=== PATIENT | male | born 1985 | race African-American/Black ===

== ENCOUNTER 2016-12-21 13:20 | Emergency (ER) | payer OTHER ==
[~2016-12-21] VITALS: Ht 177.8 cm; Wt 85.0 kg
[~2016-12-21 13:20] MED LIST: ALFU1TAB10 PO; CIPR500T2 PO; IBUP-232 PO; LORT5TAB PO; Z.0.NO CURRENT MEDS
[2016-12-21 13:36] VITALS: BP 132/74; PULSE 84; RESP 15; TEMP 98.1; O2SAT 98
--- NOTE | 2016-12-21 15:45 | RADRPT ---
EXAM DATE/TIME: 12/21/2016 15:42 [place] COMPARISON: No previous studies available for comparison. INDICATIONS : Patient fell "pop" in right knee yesterday. Complains of right knee pain laterally today. No known in jury. MEDICAL HISTORY : None. SURGICAL HISTORY : None. ENCOUNTER: Initial ACUITY: 1 day PAIN SCORE: 10/10 LOCATION: Right Knee FINDINGS: Four view examination of the right knee demonstrates no evidence of fracture or dislocation. Bony mi neralization is normal. The articular surfaces are intact. The suprapatellar soft tissues have a no rmal configuration. CONCLUSION: Normal examination for a patient of this age. Keenan Shirley MD on December 21, 2016 at 15:41 Board Certified Radiologist. This report was verified electronically.
--- NOTE | 2016-12-21 15:57 | PD ---
HPI Chief Complaint: Injury Time Seen by Provider: 15:53 Travel History International Travel<30 days: No Contact w/Intl Traveler<30days: No Traveled to known affect area: No History of Present Illness HPI Patient comes in complaining of right knee pain that he awoke with today. Patient states he was walking downstairs yesterday when he felt a pop in his right knee and awoke today with pain. Pain is sharp stabbing like in the anterior lateral aspect of the right knee radiates distally. Patient reports he is unable to bear weight on his knee secondary to the pain. Patient denies doing anything for this. Denies any numbness or tingling or known direct trauma. PFSH Past Medical History Medical History: Denies Significant Hx Social History Alcohol Use: Yes (Occ) Tobacco Use: Yes (10/31 PPD) Substance Use: No Allergies-Medications (Allergen,Severity, Reaction): Coded Allergies: No Known Allergies (Verified , 12/21/16) Reported Meds & Prescriptions Reported Meds & Active Scripts Active Naprosyn (Naproxen) 500 Mg Tab 500 Mg PO Q12HR PRN Uroxatral (Alfuzosin HCl) 10 Mg Tab 10 Mg PO DAILY Motrin (Ibuprofen) 600 Mg Tab 600 Mg PO QIDPRN GIVE WITH FOOD Lortab 5/500 (Acetaminophen/Hydrocodone Bitart) 5 Mg/500 Mg Tab 1 Tab PO QIDPRN FOR PAIN Ciprofloxacin Hcl 500 Mg Tab 500 Mg PO BID Reported No Current Meds (Miscellaneous Medication) [facility] Review of Systems Except as stated in HPI: all other systems reviewed are Neg Physical Exam Narrative GENERAL: Well-developed, well nourished, in no acute distress, and non-ill appearing. SKIN: Warm and dry. HEAD: Atraumatic. Normocephalic. EYES: Pupils equal and round. EOMI. No scleral icterus. No injection or drainage. ENT: No nasal bleeding or discharge. Mucous membranes pink and moist. NECK: Trachea midline. Supple. No nuclear rigidity. CARDIOVASCULAR: Dorsal pulses 2+ contact, and equal bilaterally. Capillary refill less than 2 seconds. No pedal edema. RESPIRATORY: No accessory muscle use. No respiratory distress. MUSCULOSKELETAL: No obvious deformities. No clubbing. No cyanosis. No edema. Full range of motion. Knee: Negative patellar apprehension, varus and valgus maneuvers, anterior draw test, and Shashi test. Pulses equal BL distal to injury. Capillary refill less than 2 seconds distal to injury and equal BL. FROM distal to injury and equal BL. Strength distal to injury equal BL. NV intact distal to injury. Dorsal pulses equal BL. She reports tenderness to palpation over anterior aspect of right knee. NEUROLOGICAL: Awake and alert. No obvious cranial nerve deficits. Motor grossly within normal limits. Normal speech. PSYCHIATRIC: Appropriate mood and affect; insight and judgment normal. Data Data Last Documented VS Vital Signs Date Time Temp Pulse Resp B/P Pulse Ox O2 Delivery O2 Flow Rate FiO2 12/21/16 13:36 98.1 84 15 132/74 98 Orders Knee, Complete (4vws) (12/21/16 ) Splint Or Brace Apply/Monitor (12/21/16 15:53) Immobilizer Knee 20 Inch (12/21/16 ) [facility] Medical Decision Making Medical Screen Exam Complete: Yes Emergency Medical Condition: Yes Differential Diagnosis Fracture, sprain, contusion, other Narrative Course There is no clinical evidence to suspect bony injury by exam. Radiographic examination revealed no fracture seen at this time. No obvious ligamental injury or obvious internal derangement is noted at this time. The anterior, posterior, lateral and medial collateral ligaments are intact and symmetrical. The distal extremity appears neurovascularly intact, without evidence of neurovascular injury nor compartment syndrome. Tendon exam also was intact. The effected limb was immobilized. The patient was discharged on pain medication along with sprain and splint care instructions and given warnings for vascular compromise. The patient is to follow up with Orthopedics. The patient agrees with plan. Patient in no obvious distress upon re-evaluation. All pertinent Radiology result(s) discussed with patient. Patient was asked if they wanted to speak to my attending, which the patient did not wish to do at this time. Any questions/ concerns in reference to patient diagnosis/condition discussed and clarified prior to patient's discharge. Reinforced sheer importance of close follow up with patient's primary physician or primary care clinic and orthopedics. Instructed patient to return to ED immediately, if symptoms return/worsen. Pt showed understanding of above instructions. Further instructions and recommendations were detailed in discharge paperwork. Pt ambulated without difficulty out of ED at discharge with crutches and knee immobilizer. Diagnosis Primary Impression: Right knee pain Qualified Code: M25.561 - Acute pain of right knee Referrals: Isaías Roche MD Patient Instructions: Crutch Instructions (ED), General Instructions, Knee Immobilizer (ED), Knee Pain (ED) Additional Instructions: Follow-up with your primary care physician and/or orthopedics in 3-5 days for reevaluation. Take all medication as prescribed. Apply ice to affected area 20 minutes per hour as needed for pain. Return to the emergency department if symptoms get worse. Med/Other Pt SpecificInfo: Prescription(s) given Scripts Naproxen (Naprosyn)500 Mg [id number] Mg PO Q12HR PRN (PAIN SCALE 1 TO 10) #14 TAB Ref 0 Prov:Thierry Jones MD 12/21/16 Disposition: 01 DISCHARGE HOME Condition: Stable Benjie Miles Dec 21, 2016 15:57
[2016-12-21] MEDS ORDERED: NAPR500 PO (15:58)
== END 2016-12-21 16:30 | disposition home or self-care (01) ==
LOC: NEPB 13:20
DX: M25.561 Pain in right knee (principal); F17.210 Nicotine dependence, cigarettes, uncomplicated; X50.9XXA Other and unspecified overexertion or strenuous movements or postures, initial encounter; Y93.01 Activity, walking, marching and hiking; Y92.9 Unspecified place or not applicable
CPT/HCPCS: 73564; 99283; E0113; L1830

== ENCOUNTER 2018-04-05 19:49 | Emergency (ER) | payer SELFPAY ==
[~2018-04-05] VITALS: Ht 177.8 cm; Wt 95.0 kg
[~2018-04-05 19:49] MED LIST changes: +NAPR500 PO
[2018-04-05 20:09] VITALS: BP 166/99; PULSE 77; RESP 18; TEMP 98.4; O2SAT 99
[2018-04-05 20:32] VITALS: BP_SYST 176; BP_DIAS 112; BP_DIAS 113; PULSE 77; RESP 18; O2SAT 97
[2018-04-05] MEDS ORDERED: amLODIPine BESYLATE 5 MG TAB PO ONE (21:00)
[2018-04-05] MEDS ORDERED: SODIUM CHLORIDE 0.9% FLUSH 10 ML FLUSH IVF PRN (21:00)
[2018-04-05] MEDS ORDERED: METOCLOPRAMIDE HCL 10 MG/2 ML VIAL IVP ONE (21:00)
[2018-04-05] MEDS ORDERED: DEXAMETHASONE SOD PHOS 20 MG/5 ML VIAL IV PUSH ONE (21:00)
--- NOTE | 2018-04-05 21:18 | PD ---
HPI Chief Complaint: Headache Time Seen by Provider: 20:35 Travel History International Travel<30 days: No Contact w/Intl Traveler<30days: No Traveled to known affect area: No History of Present Illness HPI Patient is a 32-year-old male who presents the emergency room complaints of a headache. Patient reports that for the past 10 days, he has had left-sided temporal headache. Patient reports that headache has been intermittent in nature, reports a sharp stabbing sensation to the side of his head. Patient reports that he has been taking ibuprofen as well as aspirin for symptoms, reports that he does provide mild relief. Patient's grandmother checked his blood pressure today and noted that his systolic blood pressure was elevated in the 150s, reports concerns that his blood pressure is causing his symptoms. Patient reports that he has no medical problems, he does not have any past history of hypertension in the past. Patient reports photophobia with this headache, this is not the worst headache of his life, denies thunderclap headache. Patient denies any chest pain or shortness of breath, denies any fever chills, patient has no other complaints at this time. [facility] Past Medical History Medical History: Denies Significant Hx Diminished Hearing: No Tetanus Vaccination: < 5 Years Influenza Vaccination: No Past Surgical History Surgical History: No Previous Surgery Social History Alcohol Use: Yes (Occ) Tobacco Use: Yes (10/31 PPD) Substance Use: No Allergies-Medications (Allergen,Severity, Reaction): Coded Allergies: No Known Allergies (Verified Adverse Reaction, Unknown, 04/05/18) Reported Meds & Prescriptions Reported Meds & Active Scripts Active Norvasc (Amlodipine Besylate) 5 Mg Tab 5 Mg PO DAILY Review of Systems General / Constitutional: No: Fever Eyes: No: Visual changes HENT: Positive: Headaches, No: Lightheadedness, Sore Throat Cardiovascular: No: Chest Pain or Discomfort, Palpitations, Irregular Rhythm Respiratory: No: Shortness of Breath Gastrointestinal: No: Nausea, Vomiting, Diarrhea, Abdominal Pain Genitourinary: No: Dysuria Musculoskeletal: No: Pain Skin: No Rash Neurologic: Positive: Headache, No: Weakness, Dizziness, Syncope, Focal Abnormalities, Coordination Problem, Seizures Psychiatric: No: Depression Endocrine: No: Polydipsia Hematologic/Lymphatic: No: Easy Bruising Physical Exam Narrative GENERAL: NAD, Nontoxic SKIN: Focused skin assessment warm/dry. HEAD: Atraumatic. Normocephalic. EYES: Pupils equal and round. No scleral icterus. No injection or drainage. ENT: No nasal bleeding or discharge. Mucous membranes pink and moist. NECK: Trachea midline. No JVD. CARDIOVASCULAR: Regular rate and rhythm. No murmur appreciated. RESPIRATORY: No accessory muscle use. Clear to auscultation. Breath sounds equal bilaterally. GASTROINTESTINAL: Abdomen soft, non-tender, nondistended. Hepatic and splenic margins not palpable. MUSCULOSKELETAL: No obvious deformities. No clubbing. No cyanosis. No edema. NEUROLOGICAL: Awake and alert. No obvious cranial nerve deficits. Motor grossly within normal limits. Normal speech. CN 2-12 grossly intact with no neurological deficits PSYCHIATRIC: Appropriate mood and affect; insight and judgment normal. Data Data Last Documented VS Vital Signs Date Time Temp Pulse Resp B/P (MAP) Pulse Ox O2 Delivery O2 Flow Rate FiO2 04/05/18 22:36 61 16 136/88 (104) 99 Room Air 04/05/18 20:09 98.4 Orders Orders Amlodipine (Norvasc) (04/05/18 21:00) Complete Blood Count With Diff (04/05/18 20:57) Basic Metabolic Panel (Bmp) (04/05/18 20:57) Ct Brain W/O Iv Contrast(Rout) (04/05/18 20:57) Ecg Monitoring (04/05/18 20:57) Iv Access Insert/Monitor (04/05/18 20:57) Oximetry (04/05/18 20:57) Sodium Chloride 0.9% Flush (Ns Flush) (04/05/18 21:00) Metoclopramide Inj (Reglan Inj) (04/05/18 21:00) Dexamethasone Inj (Decadron Inj) (04/05/18 21:00) Electrocardiogram (04/05/18 ) Sodium Chlor 0.9% 1000 Ml Inj (Ns 1000 M (04/05/18 22:00) Ketorolac Inj (Toradol Inj) (04/05/18 22:00) Labs Laboratory Tests Test 04/05/18 21:18 White Blood Count 8.3 TH/MM3 Red Blood Count 4.57 MIL/MM3 Hemoglobin 13.7 GM/DL Hematocrit 40.2 % Mean Corpuscular Volume 87.9 FL Mean Corpuscular Hemoglobin 30.1 PG Mean Corpuscular Hemoglobin Concent 34.2 % Red Cell Distribution Width 13.7 % Platelet Count 215 TH/MM3 Mean Platelet Volume 9.6 FL Neutrophils (%) (Auto) 47.6 % Lymphocytes (%) (Auto) 40.4 % Monocytes (%) (Auto) 7.0 % Eosinophils (%) (Auto) 4.0 % Basophils (%) (Auto) 1.0 % Neutrophils # (Auto) 3.9 TH/MM3 Lymphocytes # (Auto) 3.3 TH/MM3 Monocytes # (Auto) 0.6 TH/MM3 Eosinophils # (Auto) 0.3 TH/MM3 Basophils # (Auto) 0.1 TH/MM3 CBC Comment DIFF FINAL Differential Comment Blood Urea Nitrogen 14 MG/DL Creatinine 1.45 MG/DL Random Glucose 86 MG/DL Calcium Level 9.1 MG/DL Sodium Level 143 MEQ/L Potassium Level 3.9 MEQ/L Chloride Level 108 MEQ/L Carbon Dioxide Level 24.8 MEQ/L Anion Gap 10 MEQ/L Estimat Glomerular Filtration Rate 68 ML/MIN MDM Medical Decision Making Medical Screen Exam Complete: Yes Emergency Medical Condition: Yes Medical Record Reviewed: Yes Interpretation(s) EKG at 2050: NSR at 60bpm, QT/QTc 387/29, nonspecific T-wave changes, EKG was compared to prior EKGs, no change Vital Signs Date Time Temp Pulse Resp B/P (MAP) Pulse Ox O2 Delivery O2 Flow Rate FiO2 04/05/18 20:32 77 18 176/113 (134) 97 Room Air 176/112 (133) 04/05/18 20:09 98.4 77 18 166/99 (121) 99 Differential Diagnosis accelerated htn, cephalgia, migraine, ich, intracranial mass, electrolyte abnormality Narrative Course Patient is a 32 year old male with no past medical history presents to the ER with complaints of headaches and hypertension. Patient's initial BP was 176/113 , repeat BP 166/99. Patient will be started on Novasc 5mg as I do believe that patient's symptoms are due to hypertension. Patient does not have a primary care doctor, he will follow-up with the [place] [facility]. Reports that he has a child at home and wants to be healthy for his child. Vital Signs Date Time Temp Pulse Resp B/P (MAP) Pulse Ox O2 Delivery O2 Flow Rate FiO2 04/05/18 20:32 77 18 176/113 (134) 97 Room Air 176/112 (133) 04/05/18 20:09 98.4 77 18 166/99 (121) 99 During the course of the patients emergency department visit, the patients history, examination, and differential diagnosis were reviewed with the patient. The patient was placed on a emergency medicine physician with oximetry and frequent blood pressure monitoring. The patient had an IV access obtained and blood work sent for analysis. Patient did have a benign neurological exam. The patient was initially provided migraine cocktail as well as a dose of Norvasc for hypertension. The patients laboratory studies were reviewed and remarkable for: CBC & BMP Diagram 04/05/18 21:18 Calcium Level 9.1 Radiology studies were reviewed and remarkable for: Last Impressions Head CT 04/05/182056 Signed Impressions: CONCLUSION: 1. No acute intracranial abnormalities. Patient with the creatinine 1.45, most likely due to dehydration. Patient was given 1 L of IV fluids. Overall, patient is feeling much better with resolution of headache. Blood pressure has improved. Plan to start patient on Norvasc 5 mg, he will follow-up with the [place] [facility] for blood pressure recheck, signs and symptoms of when to return to the emergency room was reviewed with the patient in detail. Patient appreciative of care. Diagnosis Primary Impression: Cephalgia Qualified Codes: R51 - Headache Additional Impressions: Hypertension Qualified Codes: I10 - Essential (primary) hypertension Dehydration Referrals: [facility] Patient Instructions: General Instructions Additional Instructions: Please provide patient with a copy of their lab work and studies at discharge* * Please follow up with your primary care doctor in 2-3 days Return to the ER if symptoms worsen or progress Return to the ER as needed Please follow up with the [facility] for blood pressure recheck. Med/Other Pt SpecificInfo: Prescription(s) given Scripts Amlodipine (Norvasc) 5 Mg Tab 5 MG PO DAILY for Blood Pressure Management, #30 TAB 0 Refills Prov: Ade Merino DO 04/05/18 Disposition: 01 DISCHARGE HOME Condition: Stable Ade Merino DO Apr 05, 2018 21:18
[2018-04-05 21:30] LABS: AUTOMATED NEUTROPHIL # 3.9 TH/MM3 (1.8-7.7); BASOPHIL # 0.1 TH/MM3 (0-0.2); EOSINOPHIL # 0.3 TH/MM3 (0-0.4); HEMATOCRIT 40.2 % (39.0-51.0); HEMOGLOBIN 13.7 GM/DL (13.0-17.0); LYMPH % 40.4 % (9.0-44.0); LYMPHOCYTE # 3.3 TH/MM3 (1.0-4.8); MEAN CELL VOLUME 87.9 FL (80.0-100.0); MEAN CORPUSCULAR HEMOGLOBIN 30.1 PG (27.0-34.0); MEAN CORPUSCULAR HGB CONC 34.2 % (32.0-36.0); MEAN PLATELET VOLUME 9.6 FL (7.0-11.0); MONOCYTE # 0.6 TH/MM3 (0-0.9); NEUT % 47.6 % (16.0-70.0); PLATELET COUNT 215 TH/MM3 (150-450); RED BLOOD COUNT 4.57 MIL/MM3 (4.50-5.90); RED CELL DISTRIBUTION WIDTH 13.7 % (11.6-17.2); WHITE BLOOD COUNT 8.3 TH/MM3 (4.0-11.0)
--- NOTE | 2018-04-05 21:38 | RADRPT ---
EXAM DATE: 04/05/2018 9:30 PM EDT AGE/SEX: 32 years / Male INDICATIONS: Elevated blood pressure, cephalgia. CLINICAL DATA: This is the patient's initial encounter. Patient reports that signs and symptoms have been present for 1 day and indicates a pain score of 4/10. MEDICAL/SURGICAL HISTORY: None. None. RADIATION DOSE: 56.35 CTDI (mGy) COMPARISON: No prior exams available for comparison. TECHNIQUE: CT of the head without contrast. Using automated exposure control and adjustment of the mA and/or kV according to patient size, radiation dose was kept as low as reasonably achievable to ob tain optimal diagnostic quality images. FINDINGS: Cerebrum: The ventricles are normal for age. No evidence of midline shift, mass lesion, hemorrhage or acute infarction. No extraaxial fluid collections are seen. Posterior Fossa: The cerebellum and brainstem are intact. The 4th ventricle is midline. The cerebe llopontine angle is unremarkable. Extracranial: The visualized portion of the orbits is intact. Skull: The calvaria is intact. No evidence of skull fracture. CONCLUSION: 1. No acute intracranial abnormalities. Electronically signed by: Nathan Smith MD 04/05/2018 9:36 PM EDT
[2018-04-05 21:47] LABS: BICARBONATE 24.8 MEQ/L (21.0-32.0); CALCIUM 9.1 MG/DL (8.5-10.1); CREATININE 1.45 MG/DL (0.60-1.30)
[2018-04-05] MEDS ORDERED: AMLO5 PO (21:59)
[2018-04-05] MEDS ORDERED: SODIUM CHLOR 0.9% 1000 ML INJ 1,000 ML IV ONE (22:00)
[2018-04-05] MEDS ORDERED: KETOROLAC TROMETHAMINE 30 MG/ML (IVP) VIAL IV PUSH ONE (22:00)
[2018-04-05 22:08] VITALS: BP 143/98; PULSE 63; RESP 18; O2SAT 100
[2018-04-05 22:36] VITALS: BP 136/88; PULSE 61; RESP 16; O2SAT 99
--- NOTE | 2018-04-06 14:37 | EKG ---
Date Performed: 04/05/2018 Time Performed: 20:51:52 PTAGE: 32 years EKG: Sinus rhythm ST ELEVATION, PROBABLY EARLY REPOLARIZATION NONSPECIFIC T-WAVE ABNORMALITY ABNORMAL ECG INTERPRETATI ON BASED ON A DEFAULT AGE OF 40 YEARS PREVIOUS TRACING : 09/20/2007 01.00 COMPARED WITH PREVIOUS EKG SINUS TACHYCARDIA IS NO LO NGANA CRISTINA PRESENT DOCTOR: Les Stewart Interpretating Date/Time 04/06/2018 14:35:11
== END 2018-04-05 23:12 | disposition home or self-care (01) ==
LOC: NEPE 19:49
DX: R51 Headache (principal); I10 Essential (primary) hypertension; E86.0 Dehydration; R94.31 Abnormal electrocardiogram [ECG] [EKG]; F17.210 Nicotine dependence, cigarettes, uncomplicated; Z79.82 Long term (current) use of aspirin
CPT/HCPCS: 70450; 80048; 85025; 93005; 96374; 96375; 99285; J1100; J1885; J2765; J7030